=== PATIENT | male | born 1985 | race Caucasian/White ===

== ENCOUNTER 2018-01-08 11:36 | Emergency (ER) | payer BC ==
[~2018-01-08] VITALS: Ht 182.9 cm; Wt 94.8 kg
[2018-01-08 11:58] VITALS: Ht 182.9 cm; Wt 94.8 kg
[2018-01-08 12:34] LABS: PLATELET COUNT 259 x10^3mcL (130-400); RED CELL DISTRIBUTION WIDTH 13.5 % (11.5-14.5)
[2018-01-08 12:38] LABS: BASOPHIL % 0 % (0-2)
[2018-01-08 12:49] LABS: CALCIUM 9.3 mg/dL (8.5-10.1); CARBON DIOXIDE 34.8 mmol/L (21-32); CHLORIDE SERUM 103 mmol/L (98-107); CREATININE SERUM 1.1 mg/dL (0.7-1.3); GFR1 > 60 mL/min; GLUCOSE SERUM 113 mg/dL (74-106); POTASSIUM SERUM 4.8 mmol/L (3.5-5.1); SODIUM SERUM 140 mmol/L (136-145)
[2018-01-08 12:53] LABS: ALBUMIN 3.7 g/dL (3.4-5.0); ALKALINE PHOSPHATASE 80 U/L (46-116); ALT/SGPT 35 U/L (16-63); AST/SGOT 25 U/L (15-37); BILIRUBIN TOTAL 0.37 mg/dL (0.20-1.00)
[2018-01-08 14:16] VITALS: BP 140/75
== END 2018-01-08 14:16 | disposition home or self-care (01) ==
LOC: ED 11:36
PROVIDERS: Emergency Medicine
DX: I88.9 Nonspecific lymphadenitis, unspecified (principal)
CPT/HCPCS: 36415; Q9967

== ENCOUNTER 2018-08-24 10:05 | Emergency (ER) | payer OTHER ==
[~2018-08-24] VITALS: Ht 182.9 cm; Wt 90.3 kg
[2018-08-24 10:09] VITALS: BP 155/71; Ht 182.9 cm; Wt 90.3 kg
== END 2018-08-24 11:20 | disposition home or self-care (01) ==
LOC: ED 10:05
DX: S61.012A Laceration without foreign body of left thumb without damage to nail, initial encounter (principal); W26.8XXA Contact with other sharp object(s), not elsewhere classified, initial encounter; Y93.89 Activity, other specified; Y92.89 Other specified places as the place of occurrence of the external cause; Y99.8 Other external cause status
CPT/HCPCS: J2001

== ENCOUNTER 2018-08-26 10:56 | Emergency (ER) | payer OTHER ==
[~2018-08-26] VITALS: Ht 182.9 cm; Wt 93.0 kg
[2018-08-26 11:10] VITALS: BP 127/73; Ht 182.9 cm; Wt 93.0 kg
== END 2018-08-26 11:37 | disposition home or self-care (01) ==
LOC: ED 10:56
DX: S61.012D Laceration without foreign body of left thumb without damage to nail, subsequent encounter (principal); X58.XXXD Exposure to other specified factors, subsequent encounter

== ENCOUNTER 2018-09-02 12:46 | Emergency (ER) | payer OTHER ==
[~2018-09-02] VITALS: Ht 182.9 cm; Wt 92.5 kg
[2018-09-02 12:53] VITALS: Ht 182.9 cm; Wt 92.5 kg
[2018-09-02 13:31] VITALS: BP 140/74
== END 2018-09-02 13:31 | disposition home or self-care (01) ==
LOC: ED 12:46
DX: S61.012D Laceration without foreign body of left thumb without damage to nail, subsequent encounter (principal); X58.XXXD Exposure to other specified factors, subsequent encounter